=== PATIENT | female | born 1990 | race Two or more races ===

== ENCOUNTER 2018-08-22 09:28 | Emergency (ER) | payer MEDICAID ==
[~2018-08-22] VITALS: Ht 175.3 cm; Wt 87.0 kg
[2018-08-22] MEDS ORDERED: ALBU05 IH (09:35)
[2018-08-22] MEDS ORDERED: HYDROCODONE/ACETAMINOPHEN 5/325MG TABLET PO ONE (13:00)
[2018-08-22 15:24] VITALS: BP 130/78
== END 2018-08-22 15:27 | disposition home or self-care (01) ==
LOC: ER 09:28
DX: M54.2 Cervicalgia (principal); M54.5 Low back pain; H53.8 Other visual disturbances; Z89.442 Acquired absence of left ankle; Z98.890 Other specified postprocedural states
CPT/HCPCS: 72040; 72100; 81025; 99283